=== PATIENT | male | born 1990 | race Caucasian/White ===

== ENCOUNTER 2019-07-29 12:11 | Emergency (ER) | payer MEDICAID ==
[~2019-07-29] VITALS: Ht 182.9 cm; Wt 81.8 kg
[~2019-07-29 12:11] MED LIST: CYCL-1 PO; HYDR-4383 PO
[2019-07-29] MEDS ORDERED: SULF1TAB49 PO (12:37)
[2019-07-29] MEDS ORDERED: CEPH-572 PO (12:37)
[2019-07-29 13:01] VITALS: BP 134/87
== END 2019-07-29 13:02 | disposition home or self-care (01) ==
LOC: ER 12:12
DX: L03.113 Cellulitis of right upper limb (principal); F11.10 Opioid abuse, uncomplicated; G89.29 Other chronic pain; F10.99 Alcohol use, unspecified with unspecified alcohol-induced disorder; Z79.899 Other long term (current) drug therapy; Y90.9 Presence of alcohol in blood, level not specified
CPT/HCPCS: 99284

== ENCOUNTER 2020-01-16 16:23 | Emergency (ER) | payer MEDICAID ==
[~2020-01-16] VITALS: Ht 182.9 cm; Wt 81.0 kg
[2020-01-16 16:54] VITALS: BP 141/91
[2020-01-16] MEDS ORDERED: SULF1TAB49 PO (18:27)
[2020-01-16] MEDS ORDERED: CEPH500C5 PO (18:27)
== END 2020-01-16 18:34 | disposition home or self-care (01) ==
LOC: ER 16:23
DX: L03.119 Cellulitis of unspecified part of limb (principal); G89.29 Other chronic pain; F17.200 Nicotine dependence, unspecified, uncomplicated; F11.90 Opioid use, unspecified, uncomplicated; Z86.19 Personal history of other infectious and parasitic diseases; Z72.89 Other problems related to lifestyle; Z79.2 Long term (current) use of antibiotics; Z79.899 Other long term (current) drug therapy
CPT/HCPCS: 99283